=== PATIENT | female | born 1965 | race Caucasian/White ===

== ENCOUNTER 2022-01-05 05:15 | Day surgery (SDC) | payer OTHER ==
[~2022-01-05] VITALS: Ht 160 cm; Wt 87.2 kg
[2022-01-05] MEDS ORDERED: KETOROLAC TROMETHAMINE 0.5% 5 ML OPHTHALMIC SOLUTION ONE (05:31)
[2022-01-05] MEDS ORDERED: PHENYLEPHRINE HCL 2.5% 2 ML OPHTHALMIC SOLUTION ONE (05:32)
[2022-01-05] MEDS ORDERED: TROPICAMIDE 1% 2 ML OPHTHALMIC SOLUTION ONE (05:32)
[2022-01-05] MEDS ORDERED: RINGERS SOLUTION,LACTATED 0 ML IV ONE (05:32)
[2022-01-05] MEDS ORDERED: MOXIFLOXACIN HCL 0.5% 3 ML OPHTHALMIC SOLUTION ONE (05:32)
[2022-01-05] MEDS ORDERED: SODIUM CHLORIDE 0.9% 1,000 ML ONE (05:33)
[2022-01-05] MEDS ORDERED: DiphenhydrAMINE HCL 50 MG CAPSULE ONE (06:41)
[2022-01-05] MEDS ORDERED: DIAZEPAM 5 MG TABLET ONE (06:42)
[2022-01-05] MEDS ORDERED: ASPIRIN 81 MG CHEWABLE TABLET ONE (06:44)
[2022-01-05] MEDS ORDERED: BUSP5TAB20 PO (06:48)
[2022-01-05] MEDS ORDERED: LEVO125 PO (06:49)
[2022-01-05] MEDS ORDERED: GLYB-145 PO (06:50)
[2022-01-05] MEDS ORDERED: ACAR50TA5 PO (06:50)
[2022-01-05 06:51] LABS: GLUCOMETER DEV NAME(LOC) SDS.; GLUCOSE,POINT OF CARE 190 MG/DL (70-110)
[2022-01-05] MEDS ORDERED: METF-1185 PO (06:51)
[2022-01-05] MEDS ORDERED: CARV25 PO (06:52)
[2022-01-05] MEDS ORDERED: AMLO-257 PO (06:52)
[2022-01-05] MEDS ORDERED: LOSA-382 PO (06:53)
[2022-01-05] MEDS ORDERED: SODIUM CHLORIDE 0.9% 1,000 ML IV ONE (07:00)
[2022-01-05] MEDS ORDERED: LIDOCAINE/PF 1% 30 ML VIAL ONE (07:21)
[2022-01-05] MEDS ORDERED: IOHEXOL 350 MG/ML 100 ML VIAL ONE (07:21)
[2022-01-05] MEDS ORDERED: HEPARIN SODIUM 1000 UNITS/NS 1,000 ML ONE (07:21)
[2022-01-05] MEDS ORDERED: SODIUM BICARBONATE 50 MEQ/50 ML VIAL ONE (07:21)
[2022-01-05] MEDS ORDERED: FentaNYL CITRATE PF 100 MCG/2 ML VIAL ONE ×2 (07:57→08:19)
[2022-01-05] MEDS ORDERED: MIDAZOLAM HCL 2 MG/2 ML VIAL ONE ×2 (07:57→08:19)
[2022-01-05 08:04] VITALS: BP 148/81
[2022-01-05] MEDS ORDERED: IOHEXOL 350 MG/ML 100 ML VIAL IARTER ONE (08:15)
[2022-01-05] MEDS ORDERED: LIDOCAINE 1% 30 ML/SOD BICARB 8.4% 4 ML SQ ONE (08:15)
[2022-01-05] MEDS ORDERED: HEPARIN SODIUM 1000 UNITS/NS 1,000 ML IARTER ONE (08:15)
[2022-01-05] MEDS ORDERED: FentaNYL CITRATE PF 100 MCG/2 ML VIAL IVP ONE ×2 (08:30)
[2022-01-05] MEDS ORDERED: MIDAZOLAM HCL 2 MG/2 ML VIAL IVP ONE ×2 (08:30)
[2022-01-05 08:34] VITALS: BP 119/62
[2022-01-05] MEDS ORDERED: DIAZEPAM 5 MG TABLET PO ONE (09:00)
[2022-01-05] MEDS ORDERED: DiphenhydrAMINE HCL 50 MG CAPSULE PO ONE (09:00)
[2022-01-05] MEDS ORDERED: ASPIRIN 81 MG CHEWABLE TABLET PO ONE (09:00)
== END 2022-01-05 12:50 | disposition home or self-care (01) ==
LOC: CATHLAB 05:15
PROVIDERS: ATTEND Internal Medicine Interventional Cardiology
DX: R07.9 Chest pain, unspecified (principal); I10 Essential (primary) hypertension; E11.9 Type 2 diabetes mellitus without complications; E78.5 Hyperlipidemia, unspecified; Z82.49 Family history of ischemic heart disease and other diseases of the circulatory system; Z79.899 Other long term (current) drug therapy; Z90.710 Acquired absence of both cervix and uterus; Z90.49 Acquired absence of other specified parts of digestive tract; Z98.890 Other specified postprocedural states
CPT/HCPCS: 93458; 82962; 99152; 93005; C1760; J3010; J1644; J3490 ×2; J2250; Q9967; J7030; J7120